=== PATIENT | male | born 1950 | race African-American/Black ===

== ENCOUNTER 2019-07-25 20:11 | Emergency (ER) | payer OTHER ==
[~2019-07-25] VITALS: Ht 182.9 cm; Wt 79.0 kg
[2019-07-25] MEDS ORDERED: MORPHINE SULFATE 4 MG/ML CPJ (NOT FOR IM USE) IV ONE ×2 (21:15→22:15)
[2019-07-25 21:52] LABS: BASOPHILS % 0.7 % (0.0-2.0); EOSINOPHILS % 2.1 % (0.0-5.0); HEMATOCRIT. 45.4 % (42.0-52.0); HEMOGLOBIN. 14.9 g/dL (14.0-18.0); LYMPHOCYTES % 35.1 % (20.0-50.0); MEAN CORPUSCULAR HEMOGLOBIN 28.6 pg (28.0-32.0); MEAN PLATELET VOLUME 9.2 fl (7.4-10.4); MONOCYTES % 9.9 % (2.0-8.0); NEUTROPHILS % 52.2 % (40.0-76.0); PLATELET 228 x1000/uL (130-400); RED BLOOD CELL COUNT 5.22 mill/uL (4.7-6.1); RED CELL DISTRIBUTION WIDTH 15.7 % (11.6-14.6)
[2019-07-25] MEDS ORDERED: KETOROLAC 15MG/ML VIAL IV ONE (22:15)
[2019-07-25] MEDS ORDERED: CLONIDINE 0.2MG TABLET PO ONE (22:15)
[2019-07-25 23:36] LABS: CHLORIDE 108 mEq/L (98-107)
[2019-07-26] MEDS ORDERED: LABETALOL 5MG/ML SYR 20 MG/4 ML SYRINGE IV ONE
[2019-07-26 00:39] VITALS: BP 163/105
== END 2019-07-26 01:43 | disposition home or self-care (01) ==
LOC: ER 20:11
DX: S30.0XXA Contusion of lower back and pelvis, initial encounter (principal); I10 Essential (primary) hypertension; E78.00 Pure hypercholesterolemia, unspecified; F17.200 Nicotine dependence, unspecified, uncomplicated; W01.0XXA Fall on same level from slipping, tripping and stumbling without subsequent striking against object, initial encounter; Y93.89 Activity, other specified; Y92.89 Other specified places as the place of occurrence of the external cause; Y99.8 Other external cause status
CPT/HCPCS: 36415; 71045; 71100; 72100; 72170; 80053; 83880; 84484; 85025; 93005; 96374; 96375; 96376; 99284; J1885; J2270; J3490; Z7610